=== PATIENT | male | born 1960 | race Native Hawaiian/Other Pacific Islander ===

== ENCOUNTER 2016-11-06 10:12 | Outpatient (CLI) | payer BC ==
[~2016-11-06 10:12] MED LIST: EQL ASPIRIN325 MG OR; HUMALOG100 MG/ML SC; INSU100I2 SC; KLOR-CON M2020 MEQ OR; LEVOTHROID112 MCG OR; MAGNESIUM500 M1 OR; METO50TA27 PO; MICARDISHCT PO; MOBIC7.5 M1 PO
[2016-11-06 10:41] LABS: PLATELET COUNT 241 K/uL (142-355)
[2016-11-06 10:52] LABS: SODIUM 136 mmol/L (136-145)
== END 2016-11-06 11:12 | disposition home or self-care (01) ==
LOC: LABW 10:12
PROVIDERS: Internal Medicine
DX: E11.9 Type 2 diabetes mellitus without complications (principal); I10 Essential (primary) hypertension; E03.8 Other specified hypothyroidism; E78.4 Other hyperlipidemia; E29.1 Testicular hypofunction
CPT/HCPCS: 36415; 80053; 80061; 81000; 83036; 85027

== ENCOUNTER 2017-03-23 07:34 | Outpatient (CLI) | payer BC ==
[2017-03-23 08:35] LABS: POTASSIUM 3.7 mmol/L (3.6-5.2); SODIUM 141 mmol/L (136-145)
== END 2017-03-23 19:04 | disposition home or self-care (01) ==
LOC: LABW 07:34
PROVIDERS: Nurse Practitioner Family
DX: E11.9 Type 2 diabetes mellitus without complications (principal); E03.8 Other specified hypothyroidism; E78.4 Other hyperlipidemia; I10 Essential (primary) hypertension; D50.8 Other iron deficiency anemias
CPT/HCPCS: 36415; 80053; 80061; 82043; 82570; 82607; 82728; 82746; 83036; 83540; 83550; 84165; 84443; 84466; 85044

== ENCOUNTER 2017-12-16 07:39 | Outpatient (CLI) | payer BC ==
[2017-12-16 08:33] LABS: PLATELET COUNT 249 K/uL (142-355)
[2017-12-16 08:58] LABS: POTASSIUM 3.4 mmol/L (3.6-5.2)
== END 2017-12-16 19:23 | disposition home or self-care (01) ==
LOC: LABW 07:39
PROVIDERS: Internal Medicine
DX: E11.9 Type 2 diabetes mellitus without complications (principal); E03.8 Other specified hypothyroidism; I10 Essential (primary) hypertension; E78.4 Other hyperlipidemia; D50.8 Other iron deficiency anemias; E66.01 Morbid (severe) obesity due to excess calories; Z68.41 Body mass index [BMI] 40.0-44.9, adult
CPT/HCPCS: 36415; 80053; 80061; 81000; 82043; 82570; 83036; 85027

== ENCOUNTER 2018-04-01 07:10 | Outpatient (CLI) | payer BC ==
[2018-04-01 07:47] LABS: PLATELET COUNT 238 K/uL (142-355)
[2018-04-01 08:05] LABS: POTASSIUM 3.7 mmol/L (3.6-5.2)
== END 2018-04-01 19:50 | disposition home or self-care (01) ==
LOC: LABW 07:10
PROVIDERS: Internal Medicine
DX: E11.9 Type 2 diabetes mellitus without complications (principal); E66.01 Morbid (severe) obesity due to excess calories; I10 Essential (primary) hypertension; E78.5 Hyperlipidemia, unspecified
CPT/HCPCS: 36415; 80053; 80061; 81000; 83036; 84443; 85027

== ENCOUNTER 2018-07-22 07:13 | Outpatient (CLI) | payer BC ==
[2018-07-22 08:20] LABS: PLATELET COUNT 254 K/uL (142-355)
[2018-07-22 08:36] LABS: POTASSIUM 3.5 mmol/L (3.6-5.2)
== END 2018-07-22 20:29 | disposition home or self-care (01) ==
LOC: LABW 07:13
PROVIDERS: Nurse Practitioner Family
DX: E11.9 Type 2 diabetes mellitus without complications (principal); E66.01 Morbid (severe) obesity due to excess calories; I10 Essential (primary) hypertension; E78.5 Hyperlipidemia, unspecified; M79.10 Myalgia, unspecified site
CPT/HCPCS: 36415; 80053; 80061; 82550; 83036; 85027

== ENCOUNTER 2019-03-31 07:30 | Outpatient (CLI) | payer BC ==
[2019-03-31 07:55] LABS: PLATELET COUNT 255 K/uL (142-355)
[2019-03-31 08:10] LABS: POTASSIUM 3.7 mmol/L (3.6-5.2)
== END 2019-03-31 23:40 | disposition home or self-care (01) ==
LOC: LABW 07:30
PROVIDERS: Internal Medicine
DX: I10 Essential (primary) hypertension (principal); Z71.3 Dietary counseling and surveillance; E78.5 Hyperlipidemia, unspecified; E03.9 Hypothyroidism, unspecified; E66.01 Morbid (severe) obesity due to excess calories; Z12.5 Encounter for screening for malignant neoplasm of prostate; E10.65 Type 1 diabetes mellitus with hyperglycemia
CPT/HCPCS: 36415; 80053; 80061; 81000; 82043; 82570; 83036; 85027

== ENCOUNTER 2019-11-15 10:48 | Outpatient (CLI) | payer BC ==
[2019-11-15 11:12] LABS: PLATELET COUNT 230 K/uL (142-355)
[2019-11-15 11:26] LABS: POTASSIUM 3.2 mmol/L (3.6-5.2)
== END 2019-11-15 19:29 | disposition home or self-care (01) ==
LOC: LABW 10:48
PROVIDERS: Nurse Practitioner Family
DX: E10.65 Type 1 diabetes mellitus with hyperglycemia (principal); E03.9 Hypothyroidism, unspecified; I10 Essential (primary) hypertension; Z86.73 Personal history of transient ischemic attack (TIA), and cerebral infarction without residual deficits; E78.5 Hyperlipidemia, unspecified
CPT/HCPCS: 36415; 80053; 80061; 81000; 82043; 82570; 83036; 85027

== ENCOUNTER 2019-11-27 14:15 | Outpatient (CLI) | payer BC ==
[2019-11-27 14:47] LABS: POTASSIUM 4.4 mmol/L (3.6-5.2)
== END 2019-11-27 19:18 | disposition home or self-care (01) ==
LOC: LABW 14:15
PROVIDERS: Internal Medicine
DX: E87.6 Hypokalemia (principal)
CPT/HCPCS: 36415; 80048

== ENCOUNTER 2020-10-08 13:48 | Outpatient (CLI) | payer BC ==
[2020-10-08 15:06] LABS: PLATELET COUNT 244 K/uL (142-355)
[2020-10-08 15:34] LABS: POTASSIUM 3.8 mmol/L (3.6-5.2)
== END 2020-10-08 21:08 | disposition home or self-care (01) ==
LOC: LABW 13:48
PROVIDERS: ATTEND Internal Medicine
DX: I10 Essential (primary) hypertension (principal); E78.2 Mixed hyperlipidemia; E66.9 Obesity, unspecified; E10.9 Type 1 diabetes mellitus without complications; Z79.4 Long term (current) use of insulin; E03.4 Atrophy of thyroid (acquired)
CPT/HCPCS: 36415; 80053; 80061; 82043; 82248; 82570; 84439; 84443; 85027

== ENCOUNTER 2021-06-15 12:32 | Emergency (ER) | payer BC ==
[~2021-06-15] VITALS: Ht 180.3 cm; Wt 108.9 kg
[2021-06-15 12:33] VITALS: TEMP 97.4
[2021-06-15 13:27] LABS: PLATELET COUNT 295 K/uL (142-355)
[2021-06-15 16:40] VITALS: BP 124/78
== END 2021-06-15 16:40 | disposition home or self-care (01) ==
LOC: ED 12:32
PROVIDERS: Emergency Medicine Emergency Medical Services
DX: R10.13 Epigastric pain (principal)
CPT/HCPCS: 80053; 81000; 82150; 83690; 83735; 84484; 85027; 87040; 93005; 96360; 96374; 96375; 99284; J2270; J2405; J3490; Q9963